=== PATIENT | female | born 1965 | race Caucasian/White ===

== ENCOUNTER 2019-06-26 17:40 | Emergency (ER) | payer BC ==
[~2019-06-26] VITALS: Ht 170.2 cm; Wt 72.6 kg
[2019-06-26 17:55] VITALS: BP 110/61
--- NOTE | 2019-06-26 17:55 | NUR ---
ED Nurse Note: Patient arrived by car from home. She states she hit her right elbow on a table approximately 45 min ago. She had an argument with her significant other and became upset. Currently her elbow pain is a 3/10, but ranges up to an 8/10, pain does not radiate. VSS.
[2019-06-26] MEDS ORDERED: Ketorolac 30mg Inj IM ONE (18:15)
--- NOTE | 2019-06-26 18:28 | Diagnostic Imaging Report ---
Clinical Indication:Pain, trauma Technique: 3 views of the right wrist Comparison: None Findings: There is a nondisplaced fracture of the mid to distal ulnar shaft. There is a corner fracture of the distal ulna, including the styloid and a portion of the medial metaphysis. This is minimally distracted. No definite radial fracture. No definite carpal fracture. Impression: Unusual segmental radial fracture, as described This agrees with the preliminary interpretation reported by the emergency room physician in the electronic medical record
--- NOTE | 2019-06-26 18:30 | Diagnostic Imaging Report ---
Indications:Trauma, pain Technique: Three or 4 views of the right elbow Comparison: None Findings:No joint effusion demonstrated. No acute fractures. No dislocations. The joint spaces are preserved Impression: Negative
--- NOTE | 2019-06-26 18:40 | Emergency Room Report ---
History of Present Illness General Chief Complaint: Upper Extremity Injury Source: Patient Present Illness HPI 54-year-old female with no symptom past medical history here complaining of pain right wrist and right ulnar area after an injury that occurred 2 hours prior to arrival. Patient reports that she got into an argument with her teenage son, got angry, was using her hands to explain to him how angry she is that she accidentally hit the table. Hard. Patient rating pain 10 out of 10 without radiation. Also complains of pain in her right elbow however does report that she has a history of tennis elbow. Has not taken medication for symptom relief. Patient reports that she has history of gastritis and is taking Prilosec right now. Denies tingling and numbness. Has not taken any medication for symptom relief. Denies chest pain, head injury, shortness of breath, palpitation, and only associated symptoms. Bony tenderness is noted on the right distal ulna and ulnar shaft. Allergies: Coded Allergies: PENICILLINS (Verified Allergy, Unknown, 06/26/19) Patient History Past Medical History: see triage record Past Surgical History: unable to obtain Pertinent Family History: none Now: No Immunizations: UTD Reviewed Nursing Documentation: PMH: Agreed; PSxH: Agreed Nursing Documentation-PMH Past Medical History: No History, Except For Review of Systems All Other Systems: negative except mentioned in HPI Physical Exam Vital Signs Date Time Temp Pulse Resp B/P (MAP) Pulse Ox O2 Delivery O2 Flow Rate FiO2 06/26/19 17:50 98.2 66 17 110/61 (77) 99 Room Air Sp02 EP Interpretation: reviewed, normal General Appearance: no apparent distress, alert, GCS 15, non-toxic Head: normocephalic, atraumatic Eyes: bilateral eye normal inspection, bilateral eye PERRL ENT: hearing grossly normal, normal pharynx, no angioedema, normal voice Neck: full range of motion, supple/symm/no masses Respiratory: chest non-tender, lungs clear, normal breath sounds, no wheezing, speaking full sentences Cardiovascular #1: regular rate, rhythm, no edema, no murmur, normal capillary refill Cardiovascular #2: 2+ radial (R), 2+ radial (L) Gastrointestinal: normal bowel sounds, non tender, soft, non-distended, no guarding, no rebound Genitourinary: no CVA tenderness Musculoskeletal: back normal, digits/nails normal, inflammation - right elbow, tender - right distal ulna, mid shaft ulna Neurologic: alert, motor strength/tone normal, oriented x3, sensory intact, responsive, speech normal Psychiatric: judgement/insight normal, memory normal, mood/affect normal, no suicidal/homicidal ideation Skin: no rash, other - no eccymosis Lymphatic: no adenopathy Procedures Splinting Splinting : Consent: Verbal Location: right wrist and ulna Splint: sugar-tong Pre-Proc Neuro Vasc Exam: normal Post-Proc Neuro Vasc Exam: normal Patient Tolerated: Well Complications: None Progress arm sling was applied Medical Decision Making PA Attestation All my diagnosis and treatment plans were reviewed ad discussed with my supervising physician Dr. Gagnon Diagnostic Impression: Primary Impression: Distal end of ulna fracture, closed Additional Impressions: Nondisplaced comminuted fracture of shaft of right ulna Elbow contusion ER Course 54-year-old female with no symptom past medical history here complaining of pain right wrist and right ulnar area after an injury that occurred 2 hours prior to arrival. Patient reports that she got into an argument with her teenage son, got angry, was using her hands to explain to him how angry she is that she accidentally hit the table. Hard. Patient rating pain 10 out of 10 without radiation. Also complains of pain in her right elbow however does report that she has a history of tennis elbow. Has not taken medication for symptom relief. Patient reports that she has history of gastritis and is taking Prilosec right now. Denies tingling and numbness. Has not taken any medication for symptom relief. Denies chest pain, head injury, shortness of breath, palpitation, and only associated symptoms. Bony tenderness is noted on the right distal ulna and ulnar shaft. Ddx considered but are not limited to : Wrist sprain, wrist strain, wrist fracture, ulnar fracture, ulnar sprain, elbow contusion, elbow fracture Vital signs: are WNL, pt. is afebrile H&PE are most consistent with: Distal end of ulna fracture, nondisplaced comminuted fracture of shaft of right ulna, elbow contusion ORDERS: Wrist x-ray, elbow x-ray, Tylenol 3, Tylenol, ibuprofen ED INTERVENTIONS: Splint applied with arm sling, toradol DISCHARGE: At this time pt. is stable for d/c to home. Will provide printed patient care instructions, and any necessary prescriptions. Care plan and follow up instructions have been discussed with the patient prior to discharge. Patient to follow-up with her primary care provider and content production specialist keep splint on with the sling long-arm splint was applied for more immobility. Since patient is taking Prilosec is okay to take ibuprofen however do take ibuprofen 800 with food take that for inflammation. If worsening symptoms return to the emergency room Other X-Ray Diagnostic Results Other X-Ray Diagnostic Results #1: X-Ray ordered: right wrist # of Views/Limited Vs Complete: 3 View Indication: Pain EP Interpretation: Yes PA Xray: Interpretation reviewed, by supervising MD, and agrees with findings. Interpretation: other - right wrist and ulnar shaft fx Impression: Other - right wrist and ulnar shaft fx Electronically Signed by: Steve AVILEZ Scribe Text No comparison Impression: -Minimally displaced transverse distal ulnar fracture metadiaphysis, DRUJ intact. -Nondisplaced mildly comminuted distal ulnar diaphyseal fracture. -Regional soft tissue prominence. Other X-Ray Diagnostic Results #2: X-Ray ordered: right elbow # of Views/Limited Vs Complete: 3 View Indication: Pain EP Interpretation: Yes PA Xray: Interpretation reviewed, by supervising MD, and agrees with findings. Interpretation: no dislocation, no fractures Impression: No acute disease Electronically Signed by: Steve AVILEZ Scribe Text -No acute osseous abnormality definitively seen. -No elbow joint effusion. -If there is persistent concern for occult fracture, consider followup radiographs in 7-10 days versus cross-sectional imaging. Last Vital Signs Date Time Temp Pulse Resp B/P (MAP) Pulse Ox O2 Delivery O2 Flow Rate FiO2 06/26/19 17:55 98.2 84 17 110/61 99 Room Air Disposition: HOME, SELF-CARE Condition: Stable Scripts Ibuprofen (Ibu) 800 Mg Tablet 800 MG PO BID, #20 TAB Prov: Steve Weber 06/26/19 Acetaminophen* (ACETAMINOPHEN 325MG TABLET*) 325 Mg Tablet 650 MG ORAL Q6H PRN for For Pain, #30 TAB Prov: Steve Weber 06/26/19 Acetaminophen With Codeine (T#3) (TYLENOL #3 TAB*) Y Tab 1 TAB ORAL Q8HR PRN for For Pain for 3 Days, #10 TAB Prov: Steve Weber 06/26/19 Patient Instructions: Ulnar Fracture, Wrist Fracture, [id number] Additional Instructions: Follow with content production specialist, keep splint and sling on, take medication as directed, if worsening symptoms return to the emergency room. Avoid strenuous physical activity with the affected side Steve Weber Jun 26, 2019 18:40
[2019-06-26] MEDS ORDERED: ACETAMINOPHEN325 M1 ORAL (18:42)
[2019-06-26] MEDS ORDERED: ACETAMINOPHEN-1 EAC1 ORAL (18:42)
[2019-06-26] MEDS ORDERED: IBU800 MG PO (18:42)
[2019-06-26 19:02] VITALS: BP 111/60
--- NOTE | 2019-06-26 19:02 | NUR ---
ED Nurse Note: Patient cleard to go home, patient stable, AxO x 4. Verbalized understanding of discharge instructions.
== END 2019-06-26 19:02 | disposition home or self-care (01) ==
LOC: EMR 18:05
DX: S52.601A Unspecified fracture of lower end of right ulna, initial encounter for closed fracture (principal); S52.254A Nondisplaced comminuted fracture of shaft of ulna, right arm, initial encounter for closed fracture; W22.8XXA Striking against or struck by other objects, initial encounter; Y92.9 Unspecified place or not applicable; Z88.0 Allergy status to penicillin; S50.01XA Contusion of right elbow, initial encounter
CPT/HCPCS: 29125; 73080; 73110; 96372; 99284; J1885